=== PATIENT | female | born 1960 | race Caucasian/White ===

== ENCOUNTER → 2017-07-16 | Outpatient (CLI) | payer MEDICARE ==
[~2017-07-16] MED LIST: ALBU90I INH; ALBU90OI INH; ANTOXYBENA BOTHEARS; ASPI81EC PO; AZIT250 PO; Aspirin EC81 MG PO; ERGO400 PO; ERYT.5TO OS; HYDACE5; HYDACE5 PO; LORA1 PO; Lovastatin10 MG PO; Naprosyn375 MG PO; OXYM.05NI; PRED20 PO; Paxil40 MG PO; Prednisone20 MG PO; SERT25 PO; SIMV10 PO; SIMV40 PO; VICODIN 5-3001 EACH PO; Valium5 MG PO
== END | disposition home or self-care (01) ==
LOC: LAB EV 15:24 → LAB SHORT 15:24
DX: R30.0 Dysuria (principal)
CPT/HCPCS: 87086

== ENCOUNTER → 2019-02-24 | Outpatient (CLI) | payer MEDICARE | END | disposition home or self-care (01) | LOC: LAB SHORT 14:30 → LAB EV 14:30 | DX: R30.0 Dysuria (principal) | CPT/HCPCS: 87086 ==